=== PATIENT | female | born 1950 | race Caucasian/White ===

== ENCOUNTER 2016-06-07 14:47 | Emergency (ER) | payer MEDICARE, MEDICAID ==
--- NOTE | 2016-06-13 11:01 | ER ---
ADMIT: 06/07/2016 RM/LOC: ER [facility] MR#: [id number] [facility] [address] [place] [id number] [address] [place] [address] Emergency Room Report SEX: F AGE: 65 : 1950 DATE: 06/07/2016 ADDENDUM: A 65-year-old, female coming with shortness of breath. She does have asthma. She is out of her medicine. We gave her a couple of DuoNeb treatments and 20 of Decadron IM. We put her on Z-Emmanuel, prednisone 20 b.i.d. x4 days start in the a.m. I gave her DuoNeb inhaler and solution to be used every 4 to 6 hours as needed, and then she should follow up with a , we will give her one to start. CONDITION ON DISCHARGE: Improved. Flaco Escamilla MD/ flynn JOB #: [id number] CC: Flaco Escamilla MD, Attending Physician Gen Ratliff MD, Family Physician
== END 2016-06-07 17:10 | disposition home or self-care (01) ==
LOC: ER 14:47
DX: J45.901 Unspecified asthma with (acute) exacerbation (principal); E11.9 Type 2 diabetes mellitus without complications; I25.10 Atherosclerotic heart disease of native coronary artery without angina pectoris; Z79.84 Long term (current) use of oral hypoglycemic drugs; Z90.710 Acquired absence of both cervix and uterus; Z90.49 Acquired absence of other specified parts of digestive tract

== ENCOUNTER → 2016-08-14 | Outpatient (CLI) | payer MEDICARE, MEDICAID | END | disposition home or self-care (01) | LOC: RAD.S 08-07 09:50 | DX: Z12.31 Encounter for screening mammogram for malignant neoplasm of breast (principal) ==